=== PATIENT | female | born 2000 | race Caucasian/White ===

== ENCOUNTER 2021-09-19 20:34 | Emergency (ER) | payer OTHER ==
[~2021-09-19] VITALS: Ht 170.2 cm; Wt 61.7 kg
[2021-09-19 21:02] VITALS: BP 112/74
--- NOTE | 2021-09-19 22:05 | NUR ---
PT RETURN FROM XRAY
--- NOTE | 2021-09-19 22:07 | NUR ---
PT TAKEN TO BED 4
--- NOTE | 2021-09-19 22:43 | NUR ---
Dr. Thompson examining patient.
[2021-09-19] MEDS ORDERED: IBUP-2213 PO (22:56)
[2021-09-19] MEDS ORDERED: LIDO120C3 TP (22:56)
--- NOTE | 2021-09-19 23:04 | NUR ---
20 YO F BIB SELF WITH C/C OF RT ANKLE PAIN S/P SPRAINING WHILE RUNNING. +LIMITED ROM. +SWELLING. WORSE WITH WALKING AND BETTER AT REST. DENIES HX, RX AND ALLERGIES
--- NOTE | 2021-09-19 23:16 | NUR ---
Patient discharged with v/s stable. Written and verbal after care instructions given and explained. Patient alert, oriented and verbalized understanding of instructions. Ambulatory with steady gait. All questions addressed prior to discharge. ID band removed. Patient advised to follow up with PMD. Rx of IBUPROFEN AND [id number] CREAM given. Patient educated on indication of medication including possible reaction and side effects. Opportunity to ask questions provided and answered.
[2021-09-19 23:21] VITALS: BP 115/78
== END 2021-09-19 23:16 | disposition home or self-care (01) ==
LOC: MED 20:34
DX: M25.571 Pain in right ankle and joints of right foot (principal); Z79.899 Other long term (current) drug therapy
CPT/HCPCS: 73610; 99283